=== PATIENT | male | born 1985 | race Caucasian/White ===

== ENCOUNTER 2024-05-06 21:06 | Emergency (ER) | payer BC | END 2024-05-07 00:30 | disposition home or self-care (01) | LOC: MW.ED 21:06 | DX: S43.315A Dislocation of left scapula, initial encounter (principal); Z75.8 Other problems related to medical facilities and other health care; W19.XXXA Unspecified fall, initial encounter; Y93.22 Activity, ice hockey | CPT/HCPCS: 23650; 73030-26-LT; 73030-LT; 99283-25 ==